=== PATIENT | female | born 1960 | race African-American/Black ===

== ENCOUNTER 2018-09-15 10:06 | Inpatient (IN) | payer MEDICAID ==
[~2018-09-15] VITALS: Ht 170.2 cm; Wt 82.2 kg
[2018-09-15 11:43] LABS: BASOPHILS % 0.5 % (0.0-2.0); EOSINOPHILS % 1.1 % (0.0-5.0); HEMATOCRIT. 41.5 % (36.0-48.0); HEMOGLOBIN. 13.6 g/dL (12.0-16.0); LYMPHOCYTES % 22.1 % (20.0-50.0); MEAN CORPUSCULAR HEMOGLOBIN 30.5 pg (28.0-32.0); MEAN CORPUSCULAR VOLUME 93.4 fL (81.0-99.0); MEAN PLATELET VOLUME 8.7 fl (7.4-10.4); MONOCYTES % 6.1 % (2.0-8.0); NEUTROPHILS % 70.2 % (40.0-76.0); PLATELET 243 x1000/uL (130-400); RED BLOOD CELL COUNT 4.44 mill/uL (4.2-5.4)
[2018-09-15 11:46] LABS: CHLORIDE 114 mEq/L (98-107)
[2018-09-15] MEDS ORDERED: DEXTROSE 50% WATER 50ML SYRINGE IV PRN (14:45)
[2018-09-15] MEDS ORDERED: CLONIDINE 0.1MG TABLET PO PRN (14:45)
[2018-09-15] MEDS ORDERED: ONDANSETRON HCL 4MG/2ML INJ IV PRN (14:45)
[2018-09-15] MEDS ORDERED: ACETAMINOPHEN 325MG TABLET PO PRN (14:45)
[2018-09-15] MEDS: METOPROLOL TARTRATE 50MG TABLET PO SCH (16:58)
[2018-09-15] MEDS: BLOOD SUGAR DIAGNOSTIC STRIP TEST SCH ×2 (17:00→21:00)
[2018-09-15] MEDS: INSULIN LISPRO 100 UNITS/ML SUBCUT SCH ×2 (18:20→21:00)
[2018-09-15] MEDS ORDERED: ZOLPIDEM TARTRATE 5MG TABLET PO PRN (21:00)
[2018-09-16] VITALS (7 sets, daily range): BP systolic 138–155; BP diastolic 75–91
[2018-09-16] MEDS: BLOOD SUGAR DIAGNOSTIC STRIP TEST SCH ×4 (06:01→21:51)
[2018-09-16] MEDS: INSULIN LISPRO 100 UNITS/ML SUBCUT SCH ×4 (06:31→21:00)
[2018-09-16 07:07] LABS: BASOPHILS % 0.6 % (0.0-2.0); EOSINOPHILS % 2.8 % (0.0-5.0); HEMATOCRIT. 38.6 % (36.0-48.0); HEMOGLOBIN. 12.6 g/dL (12.0-16.0); LYMPHOCYTES % 58.3 % (20.0-50.0); MEAN CORPUSCULAR HEMOGLOBIN 30.6 pg (28.0-32.0); MEAN CORPUSCULAR VOLUME 93.7 fL (81.0-99.0); MEAN PLATELET VOLUME 8.1 fl (7.4-10.4); MONOCYTES % 7.2 % (2.0-8.0); NEUTROPHILS % 31.1 % (40.0-76.0); PLATELET 258 x1000/uL (130-400); RED BLOOD CELL COUNT 4.12 mill/uL (4.2-5.4); RED CELL DISTRIBUTION WIDTH 13.9 % (11.6-14.6)
[2018-09-16] MEDS ORDERED: AMLODIPINE 5MG TABLET PO SCH (09:00)
[2018-09-16] MEDS: METOPROLOL TARTRATE 50MG TABLET PO SCH (09:02)
[2018-09-16] MEDS ORDERED: PNEUMOCOCCAL 23-VAL P-SAC VAC 0.5 ML IM ONE (10:00)
[2018-09-16] MEDS ORDERED: INFLUENZA VIRUS VACCINE(AFLURIA) 0.5ML SYR IM ONE (10:00)
[2018-09-16] MEDS ORDERED: SODIUM POLYSTYRENE SULFONATE 15 G/60 ML BOT PO SCH (12:00)
[2018-09-16] MEDS: DILTIAZEM HCL 60MG TABLET PO SCH ×2 (12:16→17:43)
[2018-09-16] MEDS ORDERED: CARB-32 MT (19:02)
[2018-09-16] MEDS ORDERED: BENA10TA10 MT (19:02)
[2018-09-16] MEDS ORDERED: ATOR20TA PO (19:02)
[2018-09-16] MEDS ORDERED: LAM25 PO (19:02)
[2018-09-16] MEDS ORDERED: ASPI-1159 PO (19:02)
[2018-09-16] MEDS ORDERED: ATORVASTATIN CALCIUM 40MG TABLET PO SCH (21:00)
[2018-09-17] VITALS: BP 169/86
[2018-09-17] MEDS: DILTIAZEM HCL 60MG TABLET PO SCH ×3 (00:18→12:29)
[2018-09-17 04:00] VITALS: BP_SYST 152; BP_SYST 153; BP_DIAS 83; BP_DIAS 93
[2018-09-17 06:20] LABS: BASOPHILS % 0.7 % (0.0-2.0); EOSINOPHILS % 2.4 % (0.0-5.0); HEMATOCRIT. 36.8 % (36.0-48.0); HEMOGLOBIN. 12.1 g/dL (12.0-16.0); LYMPHOCYTES % 46.4 % (20.0-50.0); MEAN CORPUSCULAR HEMOGLOBIN 30.5 pg (28.0-32.0); MEAN PLATELET VOLUME 8.1 fl (7.4-10.4); MONOCYTES % 7.7 % (2.0-8.0); NEUTROPHILS % 42.8 % (40.0-76.0); PLATELET 250 x1000/uL (130-400); RED BLOOD CELL COUNT 3.96 mill/uL (4.2-5.4); RED CELL DISTRIBUTION WIDTH 13.6 % (11.6-14.6)
[2018-09-17] MEDS: BLOOD SUGAR DIAGNOSTIC STRIP TEST SCH ×2 (06:48→11:50)
[2018-09-17 06:49] LABS: PHOSPHORUS 4.2 mg/dL (2.5-4.9)
[2018-09-17] MEDS: CARBIDOPA/LEVODOPA 25/100MG TABLET PO SCH ×2 (07:06→13:27)
[2018-09-17] MEDS: INSULIN LISPRO 100 UNITS/ML SUBCUT SCH ×2 (07:15→12:29)
[2018-09-17 08:00] VITALS: BP 143/79
[2018-09-17] MEDS ORDERED: LAMOTRIGINE 25MG TABLET PO SCH (09:00)
[2018-09-17] MEDS ORDERED: AMLODIPINE 5MG TABLET PO SCH (10:30)
[2018-09-17] MEDS ORDERED: METOPROLOL TARTRATE 50MG TABLET PO SCH (10:30)
[2018-09-17 12:00] VITALS: BP 136/78
[2018-09-17 14:44] VITALS: BP 124/67
== END 2018-09-17 17:50 | disposition home or self-care (01) | DRG 48 ==
LOC: ER 11:39 → 5WST 14:28 → EDBEDREQ 14:32 → ENRESERV 22:20
PROVIDERS: ADMIT Internal Medicine; ATTEND Internal Medicine
DX: G90.8 Other disorders of autonomic nervous system (principal); E11.22 Type 2 diabetes mellitus with diabetic chronic kidney disease; N17.9 Acute kidney failure, unspecified; E44.1 Mild protein-calorie malnutrition; E87.8 Other disorders of electrolyte and fluid balance, not elsewhere classified; N18.3 Chronic kidney disease, stage 3 (moderate); I95.1 Orthostatic hypotension; E87.5 Hyperkalemia; G20 Parkinson's disease; E78.5 Hyperlipidemia, unspecified; F03.90 Unspecified dementia, unspecified severity, without behavioral disturbance, psychotic disturbance, mood disturbance, and anxiety; G40.909 Epilepsy, unspecified, not intractable, without status epilepticus; F02.80 Dementia in other diseases classified elsewhere, unspecified severity, without behavioral disturbance, psychotic disturbance, mood disturbance, and anxiety; I12.9 Hypertensive chronic kidney disease with stage 1 through stage 4 chronic kidney disease, or unspecified chronic kidney disease; Z86.73 Personal history of transient ischemic attack (TIA), and cerebral infarction without residual deficits; Z68.28 Body mass index [BMI] 28.0-28.9, adult; Z82.49 Family history of ischemic heart disease and other diseases of the circulatory system; Z83.3 Family history of diabetes mellitus; Z88.0 Allergy status to penicillin
CPT/HCPCS: 36415; 76770; 80048; 82962; 83735; 83880; 84100; 84484; 90686; 90732; 93005; 93306; 93970; 97163; 97530; 99285; J1815